=== PATIENT | female | born 1965 | race Caucasian/White ===

== ENCOUNTER 2018-03-25 15:24 | Outpatient (CLI) | payer BC, SELFPAY ==
[2018-03-25 16:08] LABS: HCT 40.5 % (36.0-46.0); HGB 13.6 g/dL (12.0-15.5); Mean Corp. HGB Concentration 33.6 g/dL (32.0-36.0); Mean Corpuscular Volume 92.3 fL (80-95); Mean Platelet Volume 9.5 fL (8.0-11.0); Platelet Count 293 x1000/uL (130-400); RBC 4.39 m/cumm (4.00-5.20); RBC Distribution Width 13.6 % (11.7-14.6); White Blood Cell Count 9.78 k/cumm (4.4-10.8)
[2018-03-25 17:31] LABS: ALT 39 U/L (12-78); AST 24 U/L (15-37); Albumin 3.8 g/dL (3.4-5.0); Alkaline Phosphatase 98 U/L (46-116); Anion Gap 8.4 mmol/L (3-11); BUN 23 mg/dL (7-18); Bilirubin, Total 0.3 mg/dL (0.2-1.0); CO2 29.6 mmol/L (21.0-32.0); CREATININE 0.78 mg/dL (0.55-1.02); Chloride 101 mmol/L (98-107); Glucose 99 mg/dL (70-100); Potassium 3.9 mmol/L (3.5-5.1); Sodium 139 mmol/L (136-145); TSH (W/Ref FT4) 1.77 uIU/mL (0.358-3.74); Total Protein 7.4 g/dL (6.4-8.2)
== END 2018-03-25 15:44 ==
PROVIDERS: PCP Family Medicine; Visit Provider Family Medicine
DX: N95.1 Menopausal and female climacteric states (principal); R50.9 Fever, unspecified
CPT/HCPCS: 36415; 80053; 85027; 84443

== ENCOUNTER 2018-06-27 01:42 | Outpatient (CLI) | payer BC, SELFPAY ==
--- NOTE | 2018-06-27 08:00 | DI.MAMMO_ITS ---
SYMPTOMS/DIAGNOSIS: SCREENING, Z12.31 MAMMOGRAMS: Mammograms were interpreted according to the usual protocol including computer analysis with CAD system, tomosynthesis and C view imaging. The breasts are of moderate density with fairly symmetrical distribution of fibroglandular tissue. No dominant mass or clumped microcalcification is identified in either breast. Current examination is compared with previous examinations including December 2016 and there has been interval change in appearance of an ovoid or bilobed mass or pair of masses projected in the central posterior portion of the right breast seen on CC and MLO views. The borders are not as well defined as on previous examinations and there is some question of interval growth. Although the findings could represent an intramammary lymph node, the possibility of malignancy is not excluded. Correlation with spot compression views and breast ultrasound of the right breast recommended. CONCLUSION: Additional mammographic views of the right breast and right breast ultrasound recommended as described above. Category 0, breast density category B. MQSA ASSESSMENT OF FINDINGS: Incomplete: Needs additional imaging evaluation. Category 0. Patient will receive a letter notifying them of these results. BI-RADS category B. There are scattered areas of fibroglandular density.
== END 2018-06-27 02:02 ==
PROVIDERS: PCP Family Medicine; Visit Provider Family Medicine
DX: Z12.31 Encounter for screening mammogram for malignant neoplasm of breast (principal); R92.8 Other abnormal and inconclusive findings on diagnostic imaging of breast
CPT/HCPCS: 77063; 77067

== ENCOUNTER 2018-07-02 01:58 | Outpatient (CLI) | payer BC, SELFPAY ==
--- NOTE | 2018-07-02 09:20 | DI.COMBO_ITS ---
SYMPTOM/DIAGNOSIS: F/U MAMMO, INTERVAL CHANGE IN RT MASS OR MASSES, ULTRASOUND. ADDITIONAL VIEWS OF THE RIGHT BREAST, RIGHT BREAST ULTRASOUND: Additional images are interpreted according to the usual protocol including tomosynthesis and 2D imaging. Additional views of the right breast again show an ovoid density in the central right breast. Mammographically the lesion shows some spiculation particularly anteriorly and laterally. This is more prominent compared to the prior examinations. The mass measures 1 cm in greatest length. A right breast ultrasound was performed. No cystic or solid masses are seen in the suspected area. IMPRESSION: 1 cm asymmetric density in the central right breast showing some suspicious characteristics. Biopsy is recommended. Category 4. Breast density category B. The findings were discussed with the patient and the primary care team on the date of the examination. SA ASSESSMENT OF FINDINGS: Suspicious. Biopsy should be considered. Category 4. Patient will receive a letter notifying them of these results. BI-RADS category B. There are scattered areas of fibroglandular density.
== END 2018-07-02 02:18 ==
PROVIDERS: PCP Family Medicine; Visit Provider Family Medicine
DX: Z12.31 Encounter for screening mammogram for malignant neoplasm of breast (principal); R92.8 Other abnormal and inconclusive findings on diagnostic imaging of breast; N63.10 Unspecified lump in the right breast, unspecified quadrant
CPT/HCPCS: 76642; 77063; 77067

== ENCOUNTER 2019-08-01 02:08 | Outpatient (CLI) | payer BC, SELFPAY ==
--- NOTE | 2019-08-01 06:00 | DI.MAMMO_ITS ---
EXAM: MG MAMMO SCREENING CLINICAL HISTORY: SCREENING, Z12.39 TECHNIQUE: Bilateral full field digital CC and MLO mammographic images were obtained with 3D tomosyn thesis and utilizing computer aided detection (CAD). COMPARISON: Available for comparison. FINDINGS: Masses/Architectural Distortion: None seen. There is a surgical clip in the posterior central right b reast. The right breast nodule has been removed. Microcalcifications: No suspicious pleomorphic-type are seen. Skin Thickening/Nipple Retraction: None. IMPRESSION: 1. No significant interval change with no specific features of malignancy noted. 2. Unless there is more urgent need, screening mammography is recommended, as per [employer] guidelines. BI-RADS Cat 1 - Negative Breast Density - Category B - Scattered areas of fibroglandular density A negative radiographic report should not delay biopsy if a dominant or clinically suspicious mass is present. Up to ten percent of cancers are not identified on mammography. A negative report may reinforce clinical impression. Adenosis and dense breasts may obscure an underlying neoplasm. False positive reports average 6 to 10%. Patient will receive a letter notifying them of these results.
== END 2019-08-01 02:28 ==
PROVIDERS: PCP Family Medicine; Visit Provider Family Medicine
DX: Z12.31 Encounter for screening mammogram for malignant neoplasm of breast (principal)
CPT/HCPCS: 77063; 77067

== ENCOUNTER 2019-10-06 01:57 | Outpatient (CLI) | payer BC, SELFPAY ==
[2019-10-06 08:09] LABS: HCT 39.2 % (36.0-46.0); HGB 13.4 g/dL (12.0-15.5); Mean Corp. HGB Concentration 34.2 g/dL (32.0-36.0); Mean Corpuscular Hemoglobin 30.9 pg (27.0-33.0); Mean Corpuscular Volume 90.5 fL (80-95); Mean Platelet Volume 9.9 fL (8.0-11.0); Platelet Count 295 x1000/uL (130-400); RBC 4.33 m/cumm (4.00-5.20); RBC Distribution Width 13.8 % (11.7-14.6); White Blood Cell Count 7.63 k/cumm (4.4-10.8)
[2019-10-06 08:14] LABS: Hemoglobin A1C 5.7 % (3.8-5.6)
[2019-10-06 08:50] LABS: Iron 156 ug/dL (50-170)
[2019-10-06 09:16] LABS: ALT 48 U/L (14-59); AST 23 U/L (15-37); Albumin 3.4 g/dL (3.4-5.0); Alkaline Phosphatase 114 U/L (46-116); Anion Gap 4.8 mmol/L (3-11); BUN 14 mg/dL (7-18); Bilirubin, Total 0.5 mg/dL (0.2-1.0); CO2 32.2 mmol/L (21.0-32.0); CREATININE 0.68 mg/dL (0.55-1.02); Calcium 8.7 mg/dL (8.5-10.1); Calculated LDL 108 mg/dL (<100); Chloride 102 mmol/L (98-107); Cholesterol 193 mg/dL (<200); Ferritin 82 ng/mL (8-252); Glucose 92 mg/dL (74-106); HDL Cholesterol 68 mg/dL (40-60); Potassium 4.4 mmol/L (3.5-5.1); Sodium 139 mmol/L (136-145); TSH (W/Ref FT4) 2.53 uIU/mL (0.36-3.74); Total Protein 6.9 g/dL (6.4-8.2); Triglyceride 86 mg/dL (<150); Vitamin B12 1337 pg/mL (193-986)
[2019-10-06 10:05] LABS: Vitamin D 25 Total 46.6 ng/ml (30-100)
== END 2019-10-06 02:17 ==
PROVIDERS: PCP Family Medicine; Visit Provider Family Medicine
DX: Z00.00 Encounter for general adult medical examination without abnormal findings (principal); E11.9 Type 2 diabetes mellitus without complications; M25.50 Pain in unspecified joint
CPT/HCPCS: 36415; 80053; 80061; 82306; 85027; 82607; 82728; 83036; 83540; 84443

== ENCOUNTER 2020-04-09 08:37 | Outpatient (CLI) | payer BC, SELFPAY ==
[2020-04-12 17:34] LABS: Patient Race White; SARS-CoV-2 Specimen Source Nasal
[2020-04-12 18:31] LABS: SARS-CoV-2 RNA Detected (Undetected)
== END 2020-04-09 08:57 ==
PROVIDERS: PCP Family Medicine; Visit Provider Family Medicine
DX: Z11.59 Encounter for screening for other viral diseases (principal)
CPT/HCPCS: U0003

== ENCOUNTER 2020-07-06 09:56 | Outpatient (REF) | payer BC, SELFPAY ==
--- NOTE | 2020-07-06 08:30 | PAPFT_PTH ---
PATIENT: Sisi Teresa LOC: [facility] U#:[id number] AGE/SX: 55/F ROOM: RE07/06/[address]: Aruna Mcgowan MD, DC : 1965 BED: DIS: 07/06/2020 SPEC #: [id number] RECD: 07/06/20 12:39 STATUS: DENZEL REQ #: [id number] COSME: 07/06/20 08:[address]: Yoanna Reynolds DEPT: [facility] Cytology RECD BY: Aarti Almaguer ENTERED: 07/06/20 12:40 SP TYPE: PAPFT OTHR DR: Aruna Mcgowan MD, DC Tissues: 1 - CX/ENDOCX FOR PAP SMEARS Procedures: PAP THIN PREP/UVM Screening HPV DNA PROBE Comments: [id number]
== END 2020-07-06 09:57 | disposition home or self-care (01) ==
LOC: LBN 09:56
PROVIDERS: PCP Family Medicine; Referring Provider Nurse Practitioner Family; Visit Provider Family Medicine
DX: Z12.4 Encounter for screening for malignant neoplasm of cervix (principal); Z11.51 Encounter for screening for human papillomavirus (HPV)
CPT/HCPCS: 88142; 87624

== ENCOUNTER 2020-11-25 01:41 | Outpatient (CLI) | payer BC, SELFPAY ==
--- NOTE | 2020-11-25 10:35 | DI.MAMMO_ITS ---
Exam(s) MAMMO SCREENING EXAM: MAMMO SCREENING CLINICAL HISTORY: screening,Z12.39 TECHNIQUE: Mammograms were interpreted according to the usual protocol including computer analysis w [employer] CAD system, tomosynthesis and C-view imaging. COMPARISON: 2011 through 2019 FINDINGS: The breasts are composed of scattered fibroglandular densities, Breast Density category B. No suspicious masses or suspicious microcalcifications are seen. Biopsy marker clip posterior right breast. No skin thickening or abnormal axillary lymph nodes are seen. There has been no significant change from prior exams. IMPRESSION: BI-RADS Category 1, Negative mammogram Yearly screening mammography is recommended. Breast Density - Category B, scattered fibroglandular densities. A negative radiographic report should not delay biopsy if a dominant or clinically suspicious mass is present. Up to ten percent of cancers are not identified on mammography. A negative report may reinforce clinical impression. Adenosis and dense breasts may obscure an underlying neoplasm. False positive reports average 6 to 10%. Patient will receive a letter notifying them of these results.
== END 2020-11-25 02:01 ==
PROVIDERS: PCP Family Medicine; Visit Provider Family Medicine
DX: Z12.31 Encounter for screening mammogram for malignant neoplasm of breast (principal); R92.8 Other abnormal and inconclusive findings on diagnostic imaging of breast
CPT/HCPCS: 77063; 77067

== ENCOUNTER 2021-08-05 00:11 | Outpatient (CLI) | payer BC, SELFPAY ==
--- NOTE | 2021-08-05 06:00 | DI.RAD_ITS ---
Exam(s) XR KNEE LT 3V AP,LAT,AMRITA EXAM: XR KNEE LT 3V AP,LAT,AMRITA CLINICAL HISTORY: b/l knee pain,m25.569 TECHNIQUE: COMPARISON: CR XR KNEE RT 3V AP,LAT,AMRITA from 08/05/2021 FINDINGS: Three views were obtained. There is loss of the cartilaginous joint space of the patellofemoral join t. Otherwise cartilaginous joint spaces appear fairly well maintained. Moderate marginal osteophyte s noted at multiple sites. Subchondral sclerosis and cyst formation appear to be present at the nayak llofemoral joint. IMPRESSION: DJD predominantly involving patellofemoral joint. RADIATION DOSE DELIVERED: Total DLP
--- NOTE | 2021-08-05 06:00 | DI.RAD_ITS ---
Exam(s) XR KNEE RT 3V AP,LAT,AMRITA EXAM: XR KNEE RT 3V AP,LAT,AMRITA CLINICAL HISTORY: b/l knee pain,m25.569 TECHNIQUE: COMPARISON: CR DIAGNOSTIC RADIOLOGY from 06/03/2010 FINDINGS: Three views were obtained. There is apparent narrowing of the cartilaginous joint space of the rogers lofemoral joint seen on the lateral view. There may be slight narrowing of medial tibiofemoral carti laginous joint space as well. There are moderate marginal osteophytes of all 3 joints of the knee. There is possible loose joint body posteriorly. IMPRESSION: Degenerative changes, predominantly involving patellofemoral joint. RADIATION DOSE DELIVERED: Total DLP
== END 2021-08-05 00:31 ==
PROVIDERS: PCP Family Medicine; Visit Provider Family Medicine
DX: M25.561 Pain in right knee (principal); M25.562 Pain in left knee; M17.0 Bilateral primary osteoarthritis of knee
CPT/HCPCS: 73562

== ENCOUNTER → 2021-12-21 02:20 | Outpatient (CLI) | payer BC, SELFPAY ==
--- NOTE | 2021-12-21 08:11 | DI.MAMMO_ITS ---
Exam(s) MAMMO SCREENING EXAM: MAMMO SCREENING CLINICAL HISTORY: screening,Z12.39 TECHNIQUE: Mammograms were interpreted according to the usual protocol including computer analysis w [employer] CAD system, tomosynthesis and C-view imaging. COMPARISON: 2011 through 2020 FINDINGS: The breasts are composed of scattered fibroglandular densities, Breast Density category B. No suspicious masses or suspicious microcalcifications are seen. No skin thickening or abnormal axillary lymph nodes are seen. There has been no significant change from prior exams. IMPRESSION: BI-RADS Category 1, Negative mammogram Yearly screening mammography is recommended. Breast Density - Category B, scattered fibroglandular densities. A negative radiographic report should not delay biopsy if a dominant or clinically suspicious mass is present. Up to ten percent of cancers are not identified on mammography. A negative report may reinforce clinical impression. Adenosis and dense breasts may obscure an underlying neoplasm. False positive reports average 6 to 10%. Patient will receive a letter notifying them of these results.
== END ==
PROVIDERS: PCP Family Medicine; Visit Provider Family Medicine
DX: Z12.31 Encounter for screening mammogram for malignant neoplasm of breast (principal)
CPT/HCPCS: 77063; 77067

== ENCOUNTER 2022-05-26 13:47 | Outpatient (CLI) | payer BC, SELFPAY ==
--- NOTE | 2022-05-26 14:03 | DI.RAD_ITS ---
Exam(s) XR LUMBAR SPINE COMPLETE EXAM: XR LUMBAR SPINE COMPLETE CLINICAL HISTORY: right LBP and SI pain,sacroiliac dysfunction,sciatica,m53.3,m54.30. TECHNIQUE: 2D digital imaging was performed. Five views. COMPARISON: No exams were available for comparison FINDINGS: BONES: No fracture or destructive lesion. Vertebral body heights are maintained. Mild facet hypertro phy identified. SI joints are unremarkable. DISKS: Narrowing of the T12-L1 disc space and endplate osteophytes. Remaining intervertebral disc sp aces are maintained. ALIGNMENT: Lumbar spinal alignment is within normal limits. SOFT TISSUE: Normal. IMPRESSION: Mild degenerative changes. DATA REPOSITORY: RADIATION DOSE DELIVERED:
== END 2022-05-26 14:07 ==
LOC: DI 13:48
PROVIDERS: PCP Family Medicine; Visit Provider Family Medicine
DX: M53.3 Sacrococcygeal disorders, not elsewhere classified (principal); M54.31 Sciatica, right side; M51.35 Other intervertebral disc degeneration, thoracolumbar region; M47.816 Spondylosis without myelopathy or radiculopathy, lumbar region
CPT/HCPCS: 72110

== ENCOUNTER 2022-12-28 00:51 | Outpatient (CLI) | payer BC, SELFPAY ==
--- NOTE | 2022-12-28 06:15 | DI.DEXA_ITS ---
Exam(s) XR DEXA BONE DENSITY W/WO JAMIE EXAM: XR DEXA BONE DENSITY W/WO JAMIE CLINICAL HISTORY: screening for osteoporosis in postmenopausal woman,z78.0 TECHNIQUE: COMPARISON: No exams were available for comparison FINDINGS: Lateral Spine Image: Unremarkable. No compression deformities identified. Left hip: Total T-Score: -0.1 Total Z-Score: 0.8 T- and Z-scores: Within normal limits. Lumbar Spine: Total T-Score: -0.8 Total Z-Score: 0.6 T- and Z-scores: Within normal limits. IMPRESSION: No evidence of osteoporosis.
== END 2022-12-28 01:11 ==
LOC: DI 00:51
PROVIDERS: PCP Family Medicine; Visit Provider Family Medicine
DX: Z13.820 Encounter for screening for osteoporosis (principal); Z78.0 Asymptomatic menopausal state
CPT/HCPCS: 77080

== ENCOUNTER → 2023-01-03 01:09 | Outpatient (CLI) | payer BC, SELFPAY ==
--- NOTE | 2023-01-03 08:15 | DI.MAMMO_ITS ---
Exam(s) MAMMO SCREENING EXAM: MAMMO SCREENING CLINICAL HISTORY: screening,z12.39 TECHNIQUE: Mammograms were interpreted according to the usual protocol including computer analysis w [employer] CAD system, tomosynthesis and C-view imaging. COMPARISON: 2014 through 2021 FINDINGS: The breasts are composed of scattered fibroglandular densities, Breast Density category B. No suspicious masses or suspicious microcalcifications are seen. No skin thickening or abnormal axillary lymph nodes are seen. There has been no significant change from prior exams. IMPRESSION: BI-RADS Category 1, Negative mammogram Yearly screening mammography is recommended. Breast Density - Category B, scattered fibroglandular densities. A negative radiographic report should not delay biopsy if a dominant or clinically suspicious mass is present. Up to ten percent of cancers are not identified on mammography. A negative report may reinforce clinical impression. Adenosis and dense breasts may obscure an underlying neoplasm. False positive reports average 6 to 10%. Patient will receive a letter notifying them of these results.
== END ==
PROVIDERS: PCP Family Medicine; Visit Provider Family Medicine
DX: Z12.31 Encounter for screening mammogram for malignant neoplasm of breast (principal)
CPT/HCPCS: 77063; 77067

== ENCOUNTER 2023-08-08 05:06 | Outpatient (CLI) | payer BC, SELFPAY ==
[2023-08-08 09:47] LABS: HCT 41.5 % (36.0-46.0); MCH 30.5 pg (27.0-33.0); MCHC 33.7 % (32.0-36.0); MCV 90 fL (80-95); MPV 9.4 fL (8.0-11.0); Platelet Count 273 10^3/uL (130-400); RBC 4.59 10^6/uL (3.93-5.22); RDW 13.4 % (11.7-14.6); RDW-SD 44.6 fL; WBC 7.13 10^3/uL (4.4-10.8)
[2023-08-08 10:25] LABS: Hemoglobin A1C 5.7 % (<5.7)
[2023-08-08 10:35] LABS: ALT 34 U/L (14-59); AST 20 U/L (15-37); Albumin 3.6 g/dL (3.4-5.0); Alkaline Phosphatase 79 U/L (46-116); Anion Gap 6.3 mmol/L (3-11); BUN 26 mg/dL (7-18); Bilirubin, Total 0.5 mg/dL (0.2-1.0); CO2 30.7 mmol/L (21.0-32.0); CREATININE 0.7 mg/dL (0.55-1.02); Calcium 9.2 mg/dL (8.5-10.1); Calculated LDL 117 mg/dL (<100); Chloride 105 mmol/L (98-107); Cholesterol 211 mg/dL (<200); Estimated GFR 99.57 (mL/min/1.73m2); Glucose 102 mg/dL (74-106); HDL Cholesterol 78 mg/dL (40-60); Potassium 4.5 mmol/L (3.5-5.1); Sodium 142 mmol/L (136-145); TSH (W/Ref FT4) 1.75 uIU/mL (0.36-3.74); Total Protein 7.7 g/dL (6.4-8.2); Triglyceride 84 mg/dL (<150)
== END 2023-08-08 05:07 | disposition home or self-care (01) ==
LOC: LBO 05:06
PROVIDERS: PCP Family Medicine; Visit Provider Family Medicine
DX: I10 Essential (primary) hypertension (principal); Z00.00 Encounter for general adult medical examination without abnormal findings; E03.9 Hypothyroidism, unspecified; E11.9 Type 2 diabetes mellitus without complications
CPT/HCPCS: 36415; 80053; 80061; 85027; 83036; 84443

== ENCOUNTER → 2023-09-11 02:35 | Outpatient (CLI) | payer BC, SELFPAY ==
--- NOTE | 2023-09-11 13:37 | DI.RAD_ITS ---
Exam(s) XR THORACIC SPINE COMPLETE EXAM: XR THORACIC SPINE COMPLETE CLINICAL HISTORY: thoracic back pain,m54.6. TECHNIQUE: 2D digital imaging was performed. COMPARISON: No exams were available for comparison FINDINGS: 3 views No evidence of fracture nor listhesis nor abnormal widening of the paraspinal lines. No significant thoracic scoliosis. There is multilevel moderate disc space narrowing. No osseous lesions. IMPRESSION: As above. DATA REPOSITORY: RADIATION DOSE DELIVERED:
== END ==
PROVIDERS: PCP Family Medicine; Visit Provider Family Medicine
DX: M54.6 Pain in thoracic spine (principal)
CPT/HCPCS: 72072

== ENCOUNTER 2023-09-12 05:10 | Outpatient (CLI) | payer BC, SELFPAY ==
[2023-09-12 12:48] LABS: HCT 38.5 % (36.0-46.0); HGB 13.4 g/dL (11.2-15.7); MCHC 34.8 % (32.0-36.0); MCV 89 fL (80-95); MPV 10.4 fL (8.0-11.0); Platelet Count 274 10^3/uL (130-400); RBC 4.32 10^6/uL (3.93-5.22); RDW 12.7 % (11.7-14.6); RDW-SD 41.9 fL; WBC 6.37 10^3/uL (4.4-10.8)
[2023-09-12 12:53] LABS: ESR 11 mm/hr (0-30)
[2023-09-12 13:30] LABS: ALT 25 U/L (14-59); AST 19 U/L (15-37); Albumin 3.7 g/dL (3.4-5.0); Alkaline Phosphatase 73 U/L (46-116); Anion Gap 8.9 mmol/L (3-11); BUN 12 mg/dL (7-18); Bilirubin, Total 0.5 mg/dL (0.2-1.0); CO2 28.1 mmol/L (21.0-32.0); CREATININE 0.8 mg/dL (0.55-1.02); Calcium 9.1 mg/dL (8.5-10.1); Chloride 101 mmol/L (98-107); Estimated GFR 84.82 (mL/min/1.73m2); Glucose 88 mg/dL (74-106); Potassium 4.3 mmol/L (3.5-5.1); Sodium 138 mmol/L (136-145); TSH (W/Ref FT4) 1.21 uIU/mL (0.36-3.74); Total Protein 7.6 g/dL (6.4-8.2)
[2023-09-12 13:37] LABS: Hemoglobin A1C 5.6 % (<5.7)
[2023-09-13 14:01] LABS: Albumin 56.5 % (55.8-66.1); Total Protein 7.1 g/dL (6.3-8.2)
[2023-09-13 20:03] LABS: Vitamin D 25 Total 45.7 ng/mL (30-100)
== END 2023-09-12 05:11 | disposition home or self-care (01) ==
LOC: LOS 05:11
PROVIDERS: PCP Family Medicine; Visit Provider Family Medicine
DX: G25.2 Other specified forms of tremor (principal); I10 Essential (primary) hypertension; E11.9 Type 2 diabetes mellitus without complications; E03.9 Hypothyroidism, unspecified
CPT/HCPCS: 36415; 80053; 82306; 85027; 85652; 82384; 83036; 83655; 84165; 84443

== ENCOUNTER 2023-09-15 08:04 | Outpatient (REF) | payer BC, SELFPAY ==
[2023-09-20 11:11] LABS: Urine Volume 2100 mL
== END 2023-09-15 08:05 | disposition home or self-care (01) ==
LOC: LBN 08:04
PROVIDERS: PCP Family Medicine; Visit Provider Family Medicine
DX: G25.2 Other specified forms of tremor (principal); I10 Essential (primary) hypertension; E03.9 Hypothyroidism, unspecified; E11.9 Type 2 diabetes mellitus without complications
CPT/HCPCS: 82384

== ENCOUNTER 2023-09-18 09:56 | Outpatient (REF) | payer BC, SELFPAY ==
--- NOTE | 2023-09-18 08:45 | PAPFT_PTH ---
PATIENT: Sisi Teresa LOC: [facility]#:[id number] AGE/SX: 58/F ROOM: RE09/18/[address]: Aruna Mcgowan MD, DC : 1965 BED: DIS: 09/18/2023 SPEC #: [id number] RECD: 09/18/23 12:54 STATUS: DENZEL REQ #: [id number] COSME: 09/18/23 08:[address]: Aruna Mcgowan DEPT: [facility] Cytology RECD BY: Aarti Almaguer Tissues: 1 - CX/ENDOCX FOR PAP SMEARS Procedures: PAP THIN PREP/UVM Screening HPV DNA PROBE Comments: [id number]
== END 2023-09-18 09:57 | disposition home or self-care (01) ==
LOC: LBN 09:56
PROVIDERS: PCP Family Medicine; Visit Provider Family Medicine
DX: Z11.51 Encounter for screening for human papillomavirus (HPV); Z01.419 Encounter for gynecological examination (general) (routine) without abnormal findings
CPT/HCPCS: 88142; 87624

== ENCOUNTER 2024-01-16 02:03 | Outpatient (CLI) | payer BC, SELFPAY ==
--- NOTE | 2024-01-16 07:45 | DI.MAMMO_ITS ---
Exam(s) MAMMO SCREENING EXAM: MAMMO SCREENING CLINICAL HISTORY: screening,z12.39. TECHNIQUE: Bilateral full field digital CC and MLO mammographic images were obtained with 3D tomosyn thesis and utilizing computer aided detection (CAD). COMPARISON: Prior mammograms were reviewed. FINDINGS: There has been no significant change in the appearance and distribution of the fibroglandular tissue. Benign-appearing small nodules in both breasts are unchanged from prior mammograms. There are no new spiculated masses nor malignant appearing microcalcification groups. There is no significant architectural distortion nor skin thickening-retraction. IMPRESSION: Small benign-appearing findings. No radiographic evidence of malignancy. BI-RADS Category 2 - Benign Findings Breast Density - Category B - Scattered areas of fibroglandular density Breast density Category C or D implies that the patient has dense breast tissue. Dense breast tissue can make it harder to find cancer on a mammogram. Dense breast tissue is also associated with an incr eased risk of breast cancer. This information about the result of the mammogram report was provided to the patient to raise their awareness. Use this report when you speak with the patient about their risks for breast cancer, which includes their family history. At that time, you may recommend additional screening tests (Ultrasoun d or MRI) as these tests may add significant information. A negative radiographic report should not delay biopsy if a dominant or clinically suspicious mass is present. Up to ten percent of cancers are not identified on mammography. A negative report may reinforce clinical impression. Adenosis and dense breasts may obscure an underlying neoplasm. False positive reports average 6 to 10%. Patient will receive a letter notifying them of these results.
== END 2024-01-16 02:23 ==
LOC: DI 02:03
PROVIDERS: PCP Family Medicine; Visit Provider Family Medicine
DX: Z12.31 Encounter for screening mammogram for malignant neoplasm of breast (principal)
CPT/HCPCS: 77063; 77067

== ENCOUNTER 2024-10-10 01:46 | Outpatient (CLI) | payer BC, SELFPAY ==
[2024-10-10 08:56] LABS: ALT 57 U/L (14-59); AST 26 U/L (15-37); Albumin 3.9 g/dL (3.4-5.0); Alkaline Phosphatase 111 U/L (46-116); Anion Gap 4.8 mmol/L (3-11); BUN 20 mg/dL (7-18); Bilirubin, Total 0.5 mg/dL (0.2-1.0); CO2 32.2 mmol/L (21.0-32.0); CREATININE 0.8 mg/dL (0.55-1.02); Calcium 9.4 mg/dL (8.5-10.1); Chloride 104 mmol/L (98-107); Glucose 85 mg/dL (74-106); Sodium 141 mmol/L (136-145); Total Protein 7.5 g/dL (6.4-8.2)
== END 2024-10-10 01:47 | disposition home or self-care (01) ==
PROVIDERS: PCP Family Medicine; Visit Provider Family Medicine
DX: Z51.81 Encounter for therapeutic drug level monitoring (principal); Z79.1 Long term (current) use of non-steroidal anti-inflammatories (NSAID)
CPT/HCPCS: 36415; 80053

== ENCOUNTER 2024-12-11 06:52 | Day surgery (SDC) | payer BC, SELFPAY ==
[2024-12-11 07:14] VITALS: BP 130/82; PULSE 64; RESP 16; TEMP 36.4; O2SAT 99
[2024-12-11] MEDS: Lactated Ringers 1,000 ML 80 ML IV (07:27)
--- NOTE | 2024-12-11 07:36 | W.ANESPRE ---
General Info Date of Service Date Performed: 12/11/24 Height: 5 ft Weight: 58.9 kg Body Mass Index (BMI): 25.3 Surgical Procedure: Operation Date: 12/11/24 08:35 Proposed Procedure Side Surgeon yesenia Ledezma MD Meds Allergies and Home Medications Allergies Allergy/AdvReac Type Severity Reaction Status Date / Time No Known Allergies Allergy Verified 12/11/24 07:13 Home Medication ?Medication ?Instructions ?Recorded cholecalciferol (vitamin D3) 50 150 mcg PO DAILY 07/06/20 mcg (2,000 unit) capsule acetaminophen 650 mg 650 mg PO DAILY 10/08/23 tablet,extended release (Tylenol Arthritis Pain) amantadine HCl 100 mg capsule 100 mg PO BID #180 caps 04/07/24 celecoxib 200 mg capsule 200 mg PO DAILY PRN pain #180 caps 04/11/24 tirzepatide (weight loss) 5 mg/0.5 5 mg (0.5 mL) subcut QWEEK #6 mL 10/20/24 mL subcutaneous pen injector bisacodyl 5 mg tablet,delayed 5 mg PO ONCE #4 tabs 11/27/24 release (Dulcolax (bisacodyl)) polyethylene glycol 3350 17 17 g PO ONCE #238 grams 11/27/24 gram/dose oral powder Current Visit Medications: Current Medications Generic Name Dose Route Start Last Admin Trade Name Freq PRN Reason Stop Dose Admin Ringer's Solution 1,000 mls @ 80 mls/hr 12/11/24 06:00 12/11/24 07:27 IV 12/11/24 23:59 80 mls/hr INFUSION PILAR Administration IV Miscellaneous Supplies 1 each 12/11/24 06:00 Iv Access IV 12/11/24 23:59 DIRECTED PILAR Sodium Biphosphate/Sodium Phosphate 133 ml 12/11/24 06:00 Na Phosphate Enema-Adult 133 Ml Btl [place] 12/11/24 23:59 DIRECTED PRN Sodium Chloride 0 ml 12/11/24 06:00 Normal Saline Flush 10 Ml Syr IV 12/11/24 23:59 PRN PRN Sodium Chloride 0 ml 12/11/24 06:00 Normal Saline 10 Ml Vial IJ 12/11/24 23:59 DIRECTED PRN Sterile Water 0 ml 12/11/24 06:00 Water,Injection,Sterile 10 Ml Vial IJ 12/11/24 23:59 DIRECTED PRN PFSH Active Problems Active Problems: Problem Status Onset Code Sebaceous cyst of axilla Acute L72.3 Alteration in speech Acute R47.89 Obesity Chronic E66.9 High ankle sprain of right lower extremity Acute S93.491A Pain of left fibula Acute M89.8X6 Encounter for monitoring chronic NSAID therapy Acute Z51.81, Z79.1 Parkinson disease Chronic G20.A1 Resting tremor Acute G25.2 Thoracic back pain Acute M54.6 Tremor Acute R25.1 Patellofemoral arthralgia of both knees Acute M22.2X1, M22.2X2 Sacroiliac dysfunction Acute M53.3 Plantar fasciitis Acute M72.2 COVID-19 Acute ~03/2020 U07.1 Hip pain Acute 12/02/13 M25.559 Knee pain Acute 12/02/13 M25.569 Sciatica Acute 11/30/14 M54.30 Menopausal symptoms Chronic 12/18/17 N95.1 Annual physical exam Acute 10/20/14 Z00.00 Surgical History Surgical History History of arthroscopy of knee History of section section (01/11/94) Arthroplasty of knee (09/23/10) LEFT KNEE LATERAL RELEASE AND ARTHOSCOPY Tobacco Smoking/Tobacco Use Status: Never Passive smoking exposure: No Second hand exposure: Yes Alcohol Alcohol Intake: current Alcohol intake frequency: a few times a month Alcohol type: wine Substance Use Substance use: Never Substance use type: does not use Vital Signs and Lab Results Vital Signs Most Recent Vital Signs in EMR: Most Recent Vital Signs Temp Pulse Resp BP Pulse Ox 36.4 C L 64 16 130/82 99 12/11/24 07:14 12/11/24 07:14 12/11/24 07:14 12/11/24 07:14 12/11/24 07:14 Anesthesia Assessment and Plan Anesthesia History Personal History: No History of Anesthesia Complications Family History: No Family History of Anesthesia Complications Exercise Tolerance Exercise Tolerance: Metabolic Equivalents>4 Pertinent Negatives Pertinent Negatives: No Symptoms of GERD Cardiac & Pulmonary Exam Cardiac Exam: Normal S1/S2 Heart Sounds Pulmonary Exam: Clear Bilateral Breath Sounds Implantable Cardiac Device Does patient have a Pacemaker or an ICD?: No Airway Exam Known Difficult Airway: No Mallampati Class: 2 Mouth Opening: Normal (> 3cm) Thyromental Distance: Greater than 3 cm Neck Range of Motion: Full ROM Neck Circumference: Normal Teeth Condition: Normal Dentition ASA Classification ASA Score: ASA 3 Emergency Case?: No NPO Status NPO Status: NPO Clears >2 hours, Solids >8 hours Anesthesia Plan Resuscitation Status: Full Code Anesthesia Technique: General Anesthesia Airway Planned: Natural Airway Monitors Used: Standard Monitors
[2024-12-11 07:38] VITALS: BMI 25.3
[2024-12-11 08:42] VITALS: BP 87/53; PULSE 68; RESP 16; TEMP 36.2; O2SAT 98
--- NOTE | 2024-12-11 08:49 | W.COLOREPORT ---
Date of service: 12/11/24 Time of Service: 08:49 Colonoscopy Report Date of procedure: 12/11/24 Pre-op diagnosis general: screening for colorectal cancer Post-op diagnosis procedure note: same Procedure: Screening colonoscopy Surgeon: Michelle Ledezma Anesthesia Type: MAC Estimated blood loss (mL): 0 Pathology: none sent Complications: None Indications: Screening for colorectal cancer Prep: Miralax/Dulcolax Procedure Description: Patient is here for routine screening colonoscopy. Informed consent was obtained and the patient was taken to the procedure area. The patient was placed in left lateral decubitus position on the procedure table. Timeout was performed. Anesthesia was induced. A lubricated colonoscope was inserted through the anus and passed to the cecum. The cecum was identified by the ileocecal valve and the appendiceal orifice. The scope was then slowly withdrawn and the colonic and rectal mucosa examined. There are no colon or rectal mass lesions, polyps, AVMs. There is no inflammatory change. No diverticulosis was seen. The scope was retroflexed in the anorectal junction examined. Uncomplicated internal hemorrhoids present. Assessment and plan; Normal screening colonoscopy. Average risk patient. Next screening colonoscopy will be due in 10 years.
--- NOTE | 2024-12-11 08:50 | W.PM.DSUDISC ---
Date of service: 12/11/24 Discharge Plan Disposition Patient Disposition: Home Condition: Stable Discharge Details Reason For Visit: screening colonoscopy Attending Provider: Michelle Ledezma Primary Care Provider: Aruna Mcgowan Recommendations for Follow Up Recommended tests to be ordered by follow up provider: Next screening colonoscopy due in 10 years Home Meds and New Rx's Prescriptions: No Action acetaminophen [Tylenol Arthritis Pain] 650 mg tablet extended release 650 mg PO DAILY bisacodyl [Dulcolax (bisacodyl)] 5 mg tablet,delayed release (DR/EC) 5 mg PO ONCE Qty: 4 0RF Rx Instructions: Take per colonoscopy instructions provided by ordering providers office polyethylene glycol 3350 17 gram/dose powder 17 g PO ONCE Qty: 238 0RF Rx Instructions: Take per colonoscopy instructions provided by ordering providers office cholecalciferol (vitamin D3) 50 mcg (2,000 unit) capsule 150 mcg PO DAILY amantadine HCl 100 mg capsule 100 mg PO BID Qty: 180 3RF tirzepatide (weight loss) 5 mg/0.5 mL pen injector 5 mg subcut QWEEK Qty: 6 4RF celecoxib 200 mg capsule 200 mg PO DAILY PRN (Reason: pain) Qty: 180 5RF Discharge Instructions Instructions: Colonoscopy Additional Instructions: Normal screening colonoscopy. Next screening colonoscopy will be due in 10 years. Activity:: Activity as Tolerated Diet:: As Tolerated
[2024-12-11 09:08] VITALS: BP 107/57; PULSE 54; RESP 16; TEMP 36.2; O2SAT 99
--- NOTE | 2024-12-11 10:53 | W.ANESPOSTOP ---
Postoperative Evaluation Date, Time and Location Date Performed: 12/11/24 Time Performed: 09:16 Patient Location: Day Surgery Unit Vital Signs Most Recent Imported Vital Signs: Most Recent Vital Signs Temp Pulse Resp BP Pulse Ox 36.2 C L 54 L 16 107/57 L 99 12/11/24 09:08 12/11/24 09:08 12/11/24 09:08 12/11/24 09:08 12/11/24 09:08 Pain Score Most Recent Pain Score: Most Recent Pain Score Pain Level 0 12/11/24 09:08 Assessment Mental Status: Awake (Alert & Oriented to Patient Baseline) Airway and Respiratory Function: Patent airway with normal (patient baseline) respiratory exam Cardiovascular Function: Hemodynamically Stable Hydration Status: Adequately Hydrated Nausea & Vomiting: No Nausea or Vomiting Pain: Pt. Denies Any Pain Peripheral Nerve Block: Patient did not receive a nerve block
== END 2024-12-11 09:40 | disposition home or self-care (01) ==
PROVIDERS: PCP Family Medicine; Visit Provider Surgery
PROC: 0DJD8ZZ Inspection of Lower Intestinal Tract, Via Natural or Artificial Opening Endoscopic (ICD-10-PCS; CPT 45378; principal; 2024-12-11 08:30)
DX: Z12.11 Encounter for screening for malignant neoplasm of colon (principal)
CPT/HCPCS: 45378; J2704

== ENCOUNTER 2025-04-23 09:38 | Outpatient (CLI) | payer BC, SELFPAY ==
[2025-04-23 13:50] LABS: HCT 39.2 % (36.0-46.0); HGB 13.0 g/dL (11.2-15.7); MCH 30.5 pg (27.0-33.0); MCHC 33.2 % (32.0-36.0); MCV 92 fL (80-95); MPV 9.7 fL (8.0-11.0); Platelet Count 295 10^3/uL (130-400); RBC 4.26 10^6/uL (3.93-5.22); RDW 13.4 % (11.7-14.6); RDW-SD 45.9 fL; WBC 7.95 10^3/uL (4.4-10.8)
[2025-04-23 14:33] LABS: ALT 13 U/L (10-49); AST 31 U/L (<34); Albumin 4.2 g/dL (3.2-5.0); Alkaline Phosphatase 111 U/L (46-116); Anion Gap 7.7 mmol/L (3-11); BUN 23 mg/dL (9-23); Bilirubin, Total 0.70 mg/dL (0.2-1.2); CO2 30.3 mmol/L (20.0-31.0); Calcium 9.2 mg/dL (8.3-10.6); Chloride 102 mmol/L (98-107); Glucose 75 mg/dL (74-106); Potassium 4.0 mmol/L (3.5-5.1); Sodium 140 mmol/L (136-145); Total Protein 7.3 g/dL (5.7-8.2)
== END 2025-04-23 09:39 | disposition home or self-care (01) ==
PROVIDERS: PCP Family Medicine; Visit Provider Family Medicine
DX: I10 Essential (primary) hypertension (principal); Z51.81 Encounter for therapeutic drug level monitoring; Z79.1 Long term (current) use of non-steroidal anti-inflammatories (NSAID)
CPT/HCPCS: 36415; 80053; 85027